=== PATIENT | female | born 2000 | race Caucasian/White ===

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

== ENCOUNTER → 2021-02-25 | Outpatient (CLI) | payer MEDICAID | LOC: LAB FS 10:48 | PROVIDERS: ATTEND Family Medicine | DX: Z34.91 Encounter for supervision of normal pregnancy, unspecified, first trimester (principal); Z3A.00 Weeks of gestation of pregnancy not specified | CPT/HCPCS: 36415; 82105; 82677; 84702; 86336 ==

== ENCOUNTER → 2021-03-05 | Outpatient (CLI) | payer MEDICAID ==
--- NOTE | 2021-03-05 13:44 | Diagnostic Imaging Report ---
INDICATION: survey. TECHNIQUE: Multiple real-time grayscale images were obtained over the gravid uterus. COMPARISON: None. FINDINGS: A gates viable IUP is in cephalic position and measures 18 weeks 3 days. Sonographic date of delivery is 08/03/2021. The placenta is posterior with no abruption or previa. The nondilated cervix measures 4 cm in length. Closed os to the caudal tip of the placenta is 7 cm. No abnormality at the anatomical survey. The amniotic fluid volume is normal and the heart rate is 150 BPM. IMPRESSION: 18 weeks 3 days gates viable IUP with no pathological finding identified. Biometrical measurements are as follows: Biparietal 4.04 cm, age 18 weeks 2 days. Head circumference 15.28 cm, age 18 weeks 2 days. Abdominal circumference 12.89 cm, age 18 weeks 4 days. Femur length 2.71 cm, age 18 weeks 2 days. Sonographic estimate age: 18 weeks 3 days. Sonographic estimated date of delivery: 08/03/2021. Estimated Weight: 236 gm (+/- 35 gm). LMP percentile: 8%. heart rate: 150 beats per minute. number: 1 of 1. Dictated by: Dictated on workstation # [id number]
== END ==
LOC: RAD FS 11:53
PROVIDERS: ATTEND Family Medicine
DX: Z34.92 Encounter for supervision of normal pregnancy, unspecified, second trimester (principal); Z3A.18 18 weeks gestation of pregnancy
CPT/HCPCS: 76805

== ENCOUNTER → 2021-05-26 | Outpatient (CLI) | payer MEDICAID ==
[2021-05-26 10:48] LABS: WHITE BLOOD COUNT 5.6 10^3/uL (4.3-11.0)
[2021-05-26 10:49] LABS: HEMATOCRIT 37 % (35-52); HEMOGLOBIN 12.7 g/dL (11.5-16.0); MEAN CORPUSCULAR HEMOGLOBIN 30 pg (25-34); MEAN CORPUSCULAR HGB CONC 35 g/dL (32-36); MEAN CORPUSCULAR VOLUME 87 fL (80-99); MEAN PLATELET VOLUME 9.3 fL (9.0-12.2); PLATELET COUNT 213 10^3/uL (130-400)
== END ==
LOC: LAB FS 09:22
PROVIDERS: ATTEND Family Medicine
DX: Z34.91 Encounter for supervision of normal pregnancy, unspecified, first trimester (principal)
CPT/HCPCS: 36415; 82950; 82951; 85027; 86780

== ENCOUNTER 2021-07-31 21:08 | Inpatient (IN) | payer MEDICAID ==
[~2021-07-31] VITALS: Ht 165 cm; Wt 69.0 kg
[2021-07-31 21:54] VITALS: BP 119/67
[2021-07-31 21:59] VITALS: BP 119/67
[2021-07-31 22:03] VITALS: BP 119/67
[2021-07-31 23:05] LABS: BILIRUBIN,URINE NEGATIVE (NEGATIVE); CLARITY,URINE CLEAR; COLOR,URINE YELLOW; GLUCOSE, URINE (UA) NEGATIVE (NEGATIVE); KETONES,URINE NEGATIVE (NEGATIVE); LEUKOCYTE ESTERASE ,URINE 2+ (NEGATIVE); NITRITE,URINE NEGATIVE (NEGATIVE); PH,URINE 6.5 (5-9); PROTEIN,URINE NEGATIVE (NEGATIVE)
[2021-07-31 23:12] LABS: WBC,URINE 50-100 /HPF
[2021-07-31 23:14] LABS: BACTERIA,URINE LARGE /HPF; RBC,URINE 25-50 /HPF
[2021-08-01] VITALS (14 sets, daily range): BP systolic 110–187; BP diastolic 59–90
[2021-08-01] MEDS ORDERED: D5 LR IV SOLUTION 1,000 ML IV SCH (00:15)
[2021-08-01] MEDS ORDERED: MINERAL OIL CONCENTRATE 99.9% 15 ML UDC TOP PRN (00:15)
[2021-08-01] MEDS ORDERED: HYDROmorphone 2 MG/ML VIAL (DILAUDID) IV ONE (01:30)
[2021-08-01] MEDS ORDERED: HYDROmorphone 2 MG/ML VIAL (DILAUDID) ONE (01:32)
[2021-08-01 01:36] LABS: BASOPHILS % (AUTO) 0 % (0-10); EOSINOPHILS # (AUTO) 0.1 10^3/uL (0.0-0.3); EOSINOPHILS % (AUTO) 1 % (0-10); HEMATOCRIT 37 % (35-52); HEMOGLOBIN 13.2 g/dL (11.5-16.0); LYMPHOCYTES # (AUTO) 1.7 10^3/uL (1.0-4.0); LYMPHOCYTES % (AUTO) 17 % (12-44); MEAN CORPUSCULAR HEMOGLOBIN 30 pg (25-34); MEAN CORPUSCULAR HGB CONC 35 g/dL (32-36); MEAN CORPUSCULAR VOLUME 86 fL (80-99); MEAN PLATELET VOLUME 9.9 fL (9.0-12.2); MONOCYTES # (AUTO) 0.6 10^3/uL (0.0-1.0); MONOCYTES % (AUTO) 6 % (0-12); NEUTROPHILS # (AUTO) 7.2 10^3/uL (1.8-7.8); NEUTROPHILS % (AUTO) 74 % (42-75); PLATELET COUNT 228 10^3/uL (130-400); WHITE BLOOD COUNT 9.7 10^3/uL (4.3-11.0)
[2021-08-01] MEDS ORDERED: CATHETER FLUSH 10 ML SYR IV SCH (06:00)
[2021-08-01] MEDS ORDERED: OXYTOCIN PRE-MIX DRIP 500 ML IV ONE (07:35)
[2021-08-01] MEDS: OXYTOCIN PRE-MIX DRIP 500 ML IV SCH ×2 (07:42→08:28)
--- NOTE | 2021-08-01 07:54 | History & Physical-OB ---
OB - Chief Complaint & HPI Date/Time Date of Admission: Date of Admission: Aug 01, 2021 at 00:01 Date seen by a Provider: Aug 01, 2021 Time Seen by a Provider: 07:35 Chief Complaint/History OB-Reason for Admission/Chief: Onset of Labor Hx : 2 Hx Para: 1 Expected Date of Delivery: Jul 28, 2021 Gestational Age in Weeks: 40 Gestational Age in Days: 3 History of Labs O pos Antibody neg RI RPR NR HBsAg NR HIV NR GC neg GBS neg Allergies and Home Medications Allergies Coded Allergies: No Known Drug Allergies (Unverified , 02/06/19) Patient Home Medication List Home Medication List Reviewed: Yes Amoxicillin/Potassium Clav (Augmentin 875-125 Tablet) 1 Each Tablet, 1 EACH PO BID Prescribed by: MAITE FRIAS on 02/06/191821 OB - History Hx of Present Care: Yes Ultrasounds: Normal mid trimester US Obstetrical Complications: None Medical Complications: None Obstetrical History Hx : 2 Hx Para: 1 Patient Past Medical History n/a Social History/Family History Alcohol Use: Denies Use Recreational Drug Use: No 2nd Hand Smoke Exposure: No Immunizations Influenza Vaccine Up-to-Date: No; Not Current OB - Admission Exam Physical Exam Vitals: Vital Signs 07/31/21 07/31/21 21:54 22:03 Temp 36.0 Pulse 85 Resp 16 B/P (MAP) 119/67 (84) Pulse Ox 99 O2 Delivery Room Air HEENT: NCAT Heart: Rhythm Normal Lungs: Clear Abdomen: Gravid Extremities: Normal Reflexes: Normal Cervical Dilatation: 4cm Effacement: 75% Station: -1 Membranes: Intact Heart Rate: 130's Accelerations: Accelerations Present Decelerations: No Decelerations Short Term Variability: Present Feather Boner Variability: Average (6-25) Contractions on Admission: 6-10 Minutes Apart Intensity: Firm Labs Laboratory Tests Test 07/31/21 22:30 08/01/21 01:25 Range/Units Urine Color YELLOW Urine Clarity CLEAR Urine pH 6.5 5-9 Urine Specific [place] 1.020 1.016-1.022 Urine Protein NEGATIVE NEGATIVE Urine Glucose (UA) NEGATIVE NEGATIVE Urine Ketones NEGATIVE NEGATIVE Urine Nitrite NEGATIVE NEGATIVE Urine Bilirubin NEGATIVE NEGATIVE Urine Urobilinogen 0.2 < = 1.0 MG/DL Urine Leukocyte Esterase 2+ H NEGATIVE Urine RBC (Auto) 3+ H NEGATIVE Urine RBC 25-50 H /HPF Urine WBC 50-100 H /HPF Urine Squamous Epithelial Cells 10-25 H /HPF Urine Crystals NONE /LPF Urine Bacteria LARGE H /HPF Urine Casts NONE /LPF Urine Mucus SMALL H /LPF Urine Culture Indicated YES White Blood Count 9.7 4.3-11.0 10^3/uL Red Blood Count 4.36 3.80-5.11 10^6/uL Hemoglobin 13.2 11.5-16.0 g/dL Hematocrit 37 35-52 % Mean Corpuscular Volume 86 80-99 fL Mean Corpuscular Hemoglobin 30 25-34 pg Mean Corpuscular Hemoglobin Concent 35 32-36 g/dL Red Cell Distribution Width 12.2 10.0-14.5 % Platelet Count 228 130-400 10^3/uL Mean Platelet Volume 9.9 9.0-12.2 fL Immature Granulocyte % (Auto) 1 % Neutrophils (%) (Auto) 74 42-75 % Lymphocytes (%) (Auto) 17 12-44 % Monocytes (%) (Auto) 6 0-12 % Eosinophils (%) (Auto) 1 0-10 % Basophils (%) (Auto) 0 0-10 % Neutrophils # (Auto) 7.2 1.8-7.8 10^3/uL Lymphocytes # (Auto) 1.7 1.0-4.0 10^3/uL Monocytes # (Auto) 0.6 0.0-1.0 10^3/uL Eosinophils # (Auto) 0.1 0.0-0.3 10^3/uL Basophils # (Auto) 0.0 0.0-0.1 10^3/uL Immature Granulocyte # (Auto) 0.1 0.0-0.1 10^3/uL OB - Assessment/Plan/Diagnosis Assessment Assessment: active labor Admission Dx 21 yo @ 40 weeks Active labor GBS neg Admission Status: Inpatient Order (span 2 midnights) Reason for Inpatient Admission: Active labor at 40 weeks Plan Plan: Expectant Management IVON SMITH DO Aug 01, 2021 07:54
--- NOTE | 2021-08-01 07:58 | OB Labor & Delivery Record ---
L&D History Date of Service Date of Service: Aug 01, 2021 History Expected Date of Delivery: Jul 28, 2021 Gestational Age in Weeks: 40 Hx : 2 Hx Para: 1 Complications Events: Routine care Operative Indications (Cesarea: N/A-Vaginal Delivery Intrapartal Events: None L&D Stage1 Stage One Onset of Labor - Date: Aug 01, 2021 Monitors and Tracing Monitor Mode: External Heart Rate: 125 Monitor Accelerations: Uniform Monitor Decelerations: None Station: -2 Skilled Nursing Variability: Average (6-10) Short Term Variability: Present Presentation: Vertex Vital Signs VS - Last 72 Hours, by Label 07/31/21 07/31/21 07/31/21 21:54 21:59 22:03 Temp 36.0 36.0 36.0 Pulse 85 85 85 Resp 16 16 16 B/P (MAP) 119/67 (84) Pulse Ox 99 99 99 O2 Delivery Room Air Room Air Room Air Rupture of Membranes Spontaneous Ruture of Membrane: Yes Amniotic Membrane Rupture Time: 07:30 Amniotic Membrane Fluid Desc.: Clear Vaginal Bleeding Description: Normal Show Progress/Notes Patient admitted in early labor last night, she did not want an epidural, but received one dose of dilaudid for pain control through labor early this morning approx 130. She progressed with no augmentation to 9 cm and bulging membranes when I was contacted for delivery, within 8 mins I arrived, baby had been born out onto bed L&D Stage2 Stage Two Stage II Date: Aug 01, 2021 Monitors and Tracing Monitor Mode: External Heart Rate: 125 Monitor Decelerations: None Short Term Variability: Present Position: Right Occiput Anterior (per RN) Presentation: Vertex Cord Descript/Complications Cord Vessel Description: 3 Vessels Delivery Type Delivery Method: Spontaneous Vaginal Anterior Shoulder: Left Episiotomy/Perineal Laceration Laceraction(s)/Extensions: No Condition of Infant Delivery 1 minute Comment: 8 5 minute Comment: 9 Notes Live female infant weight 5lbs, 15 oz. Condition of Infant Condition of Infant: Living Exam: No Observed Abnormalities Resuscitation Resuscitation: N/A - Spontaneous Resp L&D Stage3 Stage Three Stage III Date: Aug 01, 2021 Pictocin Pitocin Administration Comment: 30 mu wide open after delivery of placetna Placenta Delivery Placenta Delivery: Spontaneous Delivery Summary Summary Estimated blood loss (mL): 300 Attending at delivery: Ivon Smith DO Condition of Delivery Examined: Cervix Examined, Uterus Explored Post Hemorrhage: No Condition of Mother stable Condition of Infant (s) stable IVON SMITH DO Aug 01, 2021 07:58
[2021-08-01] MEDS ORDERED: HYDROcodone/APAP 5 MG/325 MG (LORTAB) TAB PO PRN (08:00)
[2021-08-01] MEDS ORDERED: ACETAMINOPHEN 500 MG TAB (TYLENOL) PO PRN (08:00)
[2021-08-01] MEDS ORDERED: BENZOCAINE/MENTHOL (DERMOPLAST) 56 ML CAN TP PRN (08:00)
[2021-08-01] MEDS ORDERED: MEASLES,MUMPS,RUBELLA 1 EA INJ SQ ONE (08:00)
[2021-08-01] MEDS ORDERED: TETANUS,DIPTH,PERTUSS P/F (BOOSTRIX) 0.5 ML VIAL IM ONE ×2 (08:00→19:41)
[2021-08-01] MEDS ORDERED: DIBUCAINE 1% OINTMENT 30 GM TUBE TOP PRN (08:00)
[2021-08-01] MEDS ORDERED: KETOROLAC 30 MG/ML VIAL IVP ONE (08:00)
[2021-08-01] MEDS ORDERED: NALOXONE 0.4 MG/ML 1 ML (NARCAN) VIAL IV PRN (08:00)
[2021-08-01] MEDS ORDERED: WITCH HAZEL(TUCKS) 40 EA JAR TOP PRN (08:00)
[2021-08-01] MEDS ORDERED: KETOROLAC 30 MG/ML VIAL ONE (08:01)
--- NOTE | 2021-08-01 08:01 | Discharge Inst-Women's Service ---
Discharge Inst-Women's Serv Depart Medication/Instructions New, Converted or Re-Newed RX: Transmitted to Pharmacy Final Diagnosis PPD 1 NVD Problems Reviewed?: Yes Consults/Follow Up Additional Follow Up: Yes Orders/Referrals Dr. Cooper in 6 weeks Activity Activity: Activity as Tolerated Driving Instructions: No Driving for 1 Week NO SMOKING: NO SMOKING Nothing Inside Vagina: No Douching, No Cantril, No Tampons Diet Discharge Diet: No Restrictions Symptoms to Report to : Bleeding Excessive, Pain Increased, Fever Over 101 Degrees F, Vaginal Bleeding Increase, Questions/Concerns For Any Problems or Questions: Contact Your Physician IVON SMITH DO Aug 01, 2021 08:01
[2021-08-01] MEDS ORDERED: ACET-93 PO (08:03)
[2021-08-01] MEDS ORDERED: DOCU100C37 PO (08:03)
[2021-08-01] MEDS ORDERED: IBUP-844 PO (08:03)
[2021-08-01] MEDS ORDERED: IBUPROFEN 600 MG (MOTRIN) TAB PO SCH (12:00)
[2021-08-01] MEDS: IBUPROFEN 600 MG (MOTRIN) TAB PO SCH ×2 (14:35→19:50)
[2021-08-01] MEDS: DOCUSATE SODIUM 100 MG (COLACE) CAP PO SCH ×2 (14:45→19:53)
[2021-08-01] MEDS: FERROUS SULF 325 MG (IRON) TAB PO SCH (14:45)
[2021-08-01] MEDS: CATHETER FLUSH 10 ML SYR IV SCH (19:53)
[2021-08-02 01:57] VITALS: BP 126/54
[2021-08-02] MEDS: IBUPROFEN 600 MG (MOTRIN) TAB PO SCH ×2 (01:57→08:00)
[2021-08-02] MEDS: CATHETER FLUSH 10 ML SYR IV SCH (05:05)
[2021-08-02 06:03] LABS: BASOPHILS # (AUTO) 0.1 10^3/uL (0.0-0.1); BASOPHILS % (AUTO) 1 % (0-10); EOSINOPHILS # (AUTO) 0.1 10^3/uL (0.0-0.3); EOSINOPHILS % (AUTO) 1 % (0-10); HEMATOCRIT 33 % (35-52); HEMOGLOBIN 11.3 g/dL (11.5-16.0); LYMPHOCYTES # (AUTO) 2.3 10^3/uL (1.0-4.0); LYMPHOCYTES % (AUTO) 21 % (12-44); MEAN CORPUSCULAR HEMOGLOBIN 30 pg (25-34); MEAN CORPUSCULAR HGB CONC 34 g/dL (32-36); MEAN CORPUSCULAR VOLUME 87 fL (80-99); MEAN PLATELET VOLUME 9.8 fL (9.0-12.2); MONOCYTES # (AUTO) 0.8 10^3/uL (0.0-1.0); MONOCYTES % (AUTO) 7 % (0-12); NEUTROPHILS # (AUTO) 7.7 10^3/uL (1.8-7.8); NEUTROPHILS % (AUTO) 70 % (42-75); PLATELET COUNT 194 10^3/uL (130-400)
[2021-08-02] MEDS ORDERED: PRENATAL VITAMIN 1 EA TAB PO SCH (07:00)
[2021-08-02 07:57] VITALS: BP 110/71
[2021-08-02] MEDS: DOCUSATE SODIUM 100 MG (COLACE) CAP PO SCH (07:59)
[2021-08-02] MEDS: FERROUS SULF 325 MG (IRON) TAB PO SCH (08:00)
--- NOTE | 2021-08-02 09:10 | Postpartum Progress Note ---
Note Note Day # 1 Subjective: Patient is without complaints. Ambulating, voiding. Tolerating a regular diet without nausea or vomiting. Normal lochia. Pain is well controlled with oral pain medications. Objective: Physical Exam: General - Alert and oriented, no apparent distress Abdomen - Soft, appropriately tender to palpation, non-distended, fundus firm at umbilicus Extremities - no edema, negative Alexa's bilaterally Assessment: PPD 1 NVD Acute blood loss anemia Plan: Routine care. Encourage breast feeding. Encourage ambulation. Ferrous sulfate supplementation. Plan for discharge today Vitals - Labs Vital Signs - I&O Vital Signs Date Time Temp Pulse Resp B/P (MAP) Pulse Ox O2 Delivery O2 Flow Rate FiO2 08/02/21 01:57 36.2 74 18 126/54 (78) 99 Room Air 08/01/21 20:38 36.0 77 18 115/68 (84) 99 Room Air 08/01/21 17:23 36.2 110 18 120/73 (89) 99 Room Air 08/01/21 14:34 36.2 63 18 111/67 (82) 100 Room Air 08/01/21 10:05 78 18 120/72 (88) Room Air 08/01/21 09:49 71 18 111/69 (83) Room Air 08/01/21 09:35 83 18 110/59 (76) Room Air 08/01/21 09:19 62 18 122/84 (97) Room Air I & O 08/02/21 07:00 Intake Total 1000 ml Balance 1000 ml Labs Laboratory Tests 08/02/21 05:32: White Blood Count 11.0, Red Blood Count 3.82, Hemoglobin 11.3L, Hematocrit 33L, Mean Corpuscular Volume 87, Mean Corpuscular Hemoglobin 30, Mean Corpuscular Hemoglobin Concent 34, Red Cell Distribution Width 12.6, Platelet Count 194, Mean Platelet Volume 9.8, Immature Granulocyte % (Auto) 1, Neutrophils (%) (Auto) 70, Lymphocytes (%) (Auto) 21, Monocytes (%) (Auto) 7, Eosinophils (%) (Auto) 1, Basophils (%) (Auto) 1, Neutrophils # (Auto) 7.7, Lymphocytes # (Auto) 2.3, Monocytes # (Auto) 0.8, Eosinophils # (Auto) 0.1, Basophils # (Auto) 0.1, Immature Granulocyte # (Auto) 0.1 IVON SMITH DO Aug 02, 2021 09:10
[2021-08-02] MEDS ORDERED: PREN1TAB79 PO (10:22)
== END 2021-08-02 12:21 | disposition home or self-care (01) | DRG 806 ==
LOC: WSo 21:08 → LDRP 21:11 → WSo 08-01 → LDRP 08-01 00:01
PROVIDERS: ADMIT Obstetrics & Gynecology; ATTEND Obstetrics & Gynecology
PROC: 10E0XZZ Delivery of Products of Conception, External Approach (ICD-10-PCS; principal; 2021-08-01)
DX: O90.81 Anemia of the puerperium (principal); D62 Acute posthemorrhagic anemia; Z37.0 Single live birth; Z3A.40 40 weeks gestation of pregnancy; Z23 Encounter for immunization
CPT/HCPCS: 36415; 81000; 85025; 86850; 86900; 86901; 87088; 90715; 99212

== ENCOUNTER → 2021-09-15 | Outpatient (CLI) | payer MEDICAID ==
[~2021-09-15] MED LIST changes: +ACET-93 PO; +DOCU100C37 PO; +IBUP-844 PO; +PREN1TAB79 PO
--- NOTE | 2021-09-15 11:53 | Diagnostic Imaging Report ---
EXAMINATION: Chest 2 view HISTORY: Chest pain. COMPARISON: None available. FINDINGS: The lung volumes are normal. No focal consolidation is seen. No large pleural effusion or pneumothorax is seen. The cardiomediastinal silhouette is normal in size and contour. No acute osseous abnormality is seen. IMPRESSION: 1. No acute pleuroparenchymal process. Dictated by: Dictated on workstation # [id number]
== END ==
LOC: RAD FS 11:18
PROVIDERS: ATTEND Family Medicine
DX: R07.9 Chest pain, unspecified (principal)
CPT/HCPCS: 71046

== ENCOUNTER → 2022-01-15 | Outpatient (CLI) | payer MEDICAID | LOC: LAB FS 09:48 | PROVIDERS: ATTEND Registered Nurse Emergency | DX: Z00.00 Encounter for general adult medical examination without abnormal findings (principal); R00.2 Palpitations; L28.2 Other prurigo ==